=== PATIENT | female | born 1950 | race Caucasian/White ===

== ENCOUNTER 2018-11-23 15:14 | Emergency (ER) | payer MEDICARE, MEDICAID ==
--- NOTE | 2018-11-23 15:55 | ED.PDOC ---
History of Present Illness - General Chief Complaint: Neuro Symptoms/Deficits Stated Complaint: altered mental status Time Seen by Provider: 11/23/18 15:15 Source: family, EMS Exam Limitations: clinical condition - History of Present Illness Initial Comments: patient is brought in via EMS from [facility]. They report altered LOC but cannot tell us much more than that. They do state that she was talking and alert several days ago and that she does have a history of being a CO2 retainer with primary diagnosis of COPD. Her family was called and they stated that the patient had a COPD exacerbation that required hospitalization. During hospitalization she did not have her BiPAP on at nighttime for several nights and suffered an acute myocardial infarction. At that time she had cardiac arrest and was intubated. They were initially able to get her off of the ventilator but then she began having difficulties again during rehabilitation and tracheostomy tube had to be replaced. Patient was in rehabilitation and was talking and eating and feeding herself and she was sent to [facility] on November 14. Family states that that was her baseline for the first 4 days of care home admission. However, after they started seeing worsening and 2 days ago she became lethargic and stopped eating. They state her past medical history is significant for bipolar disorder, hypertension, diabetes mellitus type 2, COPD from distant smoking (she quit 20 years ago). Patient has a history of obstructive sleep apnea as well as cardiomyopathy. Timing/Duration: getting worse Severity: severe Improving Factors: nothing Worsening Factors: nothing Associated Symptoms: denies symptoms - care home unable to report Allergies/Adverse Reactions: Allergies Cephalexin [From Keflex] Allergy (Verified 11/23/18 15:44) Lidocaine Allergy (Verified 11/23/18 15:44) NSAIDs Allergy (Verified 11/23/18 15:44) Ondansetron [From Zofran] Allergy (Verified 11/23/18 15:44) Home Medications: Ambulatory Orders Sulfa/Trimeth 800/160 (Ds) Tab [Bactrim DS] 1 tablet PO BID #20 tab 11/23/18 Review of Systems - Review of Systems Review of Systems: 11/23/18 15:56 unable to evaluate secondary to altered LOC and NH unable to report Past Medical History (General) - Patient Medical History Hx Asthma: Yes Hx of COPD: Yes Hx Cardiac Disorders: Yes Hx Hypertension: Yes Hx Diabetes: Yes Hx Gastroesophageal Reflux: Yes - Social History Hx Tobacco Use: Yes - Activities of Daily Living Custodial/Assisted Living (if applicable):: [facility] - Triage Comment ED Triage Comment: EMS states patient fell on Saturday and today is lethargic. Family Medical History - Family History Mother Family History: Unknown Living Status: Unknown Physical Exam - Physical Exam General Appearance: Ill Appearing, Obese, Other - opens eyes to touch but not responding Eye Exam: bilateral normal - pinpoint pupils but responsive Ears, Nose, Throat: normal pharynx - dry mucous membranes Neck: non-tender, full range of motion, supple, other - treacheostomy tube in place Respiratory: chest non-tender, lungs clear, normal breath sounds, no respiratory distress Cardiovascular/Chest: normal peripheral pulses, regular rate, rhythm, no edema, no gallop, no JVD, no murmur Peripheral Pulses: radial,right: 2+, radial,left: 2+ Gastrointestinal/Abdominal: normal bowel sounds, non tender, soft Extremity: normal inspection Skin Exam: normal color, warm/dry Lymphatic: no adenopathy Progress - Progress Progress: 11/23/18 20:21 patient is now awake and talking to us. Only treatment thus far has been adjustment of her vent settings. Possible early UTI. Will treat with bactrim as she has allergy to cephalexin. Will call family and send her back to care home. - Results/Orders Results/Orders: Patient Name: DEWAYNE PROCTOR Gender: Female Date of : 1950 Referring Physician: MELANIE RAMOS Organization: [facility] Accession Number: [id number] Requested Date: November 23, 2018 15:27 Report Status: Final Requested Procedure: 1 Procedure Description: Chest,1 View Modality: CR Findings Reporting MD: Jose Wang Fellow MD: Not available Dictation Time: Pantomimist: Not available Legislative Correspondent Date: EXAM DESCRIPTION: Chest,1 View CLINICAL HISTORY: altered LOC COMPARISON: None available FINDINGS: A tracheostomy tube is present without apparent complication. The cardiac silhouette is at the upper limits of normal size for AP technique. Mediastinal contours are otherwise unremarkable. There is no airspace consolidation or pleural effusion. The bronchovascular markings are within normal limits, and the lungs are not hyperinflated. There is no pneumothorax or acute fracture. IMPRESSION: Borderline cardiomegaly, otherwise unremarkable exam. Departure - Departure Clinical Impression: Altered behavior UTI (urinary tract infection) Qualifiers: Urinary tract infection type: acute cystitis Hematuria presence: without hematuria Qualified Code(s): N30.00 - Acute cystitis without hematuria Disposition: Discharge to SNF Departure Forms: ED Discharge - Pt. Copy, Patient Portal Self Enrollment Referrals: ARNAUD FNA [Primary Care Provider] - 1-2 Weeks Prescriptions: Sulfa/Trimeth 800/160 (Ds) Tab [Bactrim DS] 1 tablet PO BID #20 tab Home Medications: Ambulatory Orders Sulfa/Trimeth 800/160 (Ds) Tab [Bactrim DS] 1 tablet PO BID #20 tab 11/23/18 Additional Instructions: return to ER for shortness of breath, altered LOC, intractable emesis.
--- NOTE | 2018-11-23 15:59 | RAD ---
EXAM DESCRIPTION: Chest,1 View CLINICAL HISTORY: altered LOC COMPARISON: None available FINDINGS: A tracheostomy tube is present without apparent complication. The cardiac silhouette is at the upper limits of normal size for AP technique. Mediastinal contours are otherwise unremarkable. There is no airspace consolidation or pleural effusion. The bronchovascular markings are within normal limits, and the lungs are not hyperinflated. There is no pneumothorax or acute fracture. IMPRESSION: Borderline cardiomegaly, otherwise unremarkable exam. Electronically signed by: Jose Wang MD 11/23/2018 3:57 PM CDT
--- NOTE | 2018-11-23 17:15 | CT ---
EXAM DESCRIPTION: CT Head CLINICAL HISTORY: 68 years Female altered LOC COMPARISON: None TECHNIQUE: Noncontrast axial scans of the brain were obtained. Sagittal and coronal reformatted images were performed. There are a few scanning artifacts on various slices due to slight patient motion. This exam was performed according to our departmental dose-optimization program, which includes automated exposure control, adjustment of the mA and/or kV according to patient size and/or use of iterative reconstruction technique. FINDINGS: There is no evidence of acute intracranial hemorrhage, extracerebral fluid collection, hydrocephalus, midline shift, obvious mass effect, or major territorial infarction. Equivocal for tiny old lacunar infarct on the left. There is slight positional asymmetry. Cortical sulci are unremarkable. Cortez-white distinction is preserved. There is slight vascular calcification at the base of the brain. The bony calvarium appears intact. There is minimal mucosal thickening in both maxillary antra. Otherwise, the paranasal sinuses and mastoid air cells appear clear except for possible minimal left mastoid air cell opacification. IMPRESSION: No evidence of acute intracranial hemorrhage. Minor findings as described above. Electronically signed by: Mo Wise MD 11/23/2018 5:13 PM CDT
[2018-11-23] MEDS ORDERED: SULFA/TRIMETH SUSP 200/40 60 ML BTTL PO ONE (20:20)
[2018-11-23 20:56] VITALS: BP 127/70; TEMP 100.6; O2SAT 93
== END 2018-11-23 21:02 ==
LOC: ER 15:14
DX: N30.00 Acute cystitis without hematuria (principal); R41.82 Altered mental status, unspecified; I25.2 Old myocardial infarction; J44.9 Chronic obstructive pulmonary disease, unspecified; I51.9 Heart disease, unspecified; I10 Essential (primary) hypertension; E11.9 Type 2 diabetes mellitus without complications; K21.9 Gastro-esophageal reflux disease without esophagitis; F31.9 Bipolar disorder, unspecified; G47.33 Obstructive sleep apnea (adult) (pediatric); Z93.0 Tracheostomy status; Z88.8 Allergy status to other drugs, medicaments and biological substances; Z88.6 Allergy status to analgesic agent; Z88.1 Allergy status to other antibiotic agents; Z87.891 Personal history of nicotine dependence

== ENCOUNTER 2018-11-25 18:19 | Emergency (ER) | payer MEDICARE, MEDICAID ==
[2018-11-25] MEDS ORDERED: IPRATROPIUM/ALBUTEROL 3 ML VIAL NEB ONE (19:24)
--- NOTE | 2018-11-25 19:36 | RAD ---
EXAM: XR Chest, 1 View CLINICAL HISTORY: 68 years old and is Female; altered mental status TECHNIQUE: Frontal view of the chest. COMPARISON: No relevant prior studies available. FINDINGS: Limitations: None. Lungs: Unremarkable. No consolidation. Pleural space: Unremarkable. No pneumothorax. Heart: Stable prominent cardiac shadow. Mediastinum: Unremarkable. Bones/joints: Unremarkable. Tubes, lines and devices: Tracheostomy unchanged. IMPRESSION: No acute findings. Electronically signed by: Hyun Rm MD 11/25/2018 7:34 PM CDT
[2018-11-25] MEDS: IPRATROPIUM/ALBUTEROL 3 ML VIAL NEB ONE (19:50)
[2018-11-25] MEDS: ACETYLCYSTEIN 20 % 6,000 MG/30 ML VIAL NEB SCH (20:02)
--- NOTE | 2018-11-25 22:08 | ED.PDOC ---
History of Present Illness - General Chief Complaint: Neuro Symptoms/Deficits Stated Complaint: ALTERED MENTAL STATUS Time Seen by Provider: 11/25/18 18:33 Source: patient, EMS notes reviewed Exam Limitations: clinical condition - History of Present Illness Initial Comments: The patient is a 68-year-old female sitting up secondary to another episode of mild altered mental status. The patient was dizzy and a little bit confused when she got up at the longterm. She fell and slid to the ground. She does not really appear to have herself with the fall. She is cooperative. She is drowsy. She reports that she did receive some of her evening medications. She does have several sedating-type medications. The patient is on a vent. It does appear that she was on a trach collar earlier in the day. She does not have any further complaints at this time. No evidence of syncope.the patient does appear to move all extremities well. She moves her legs well when we need to do a [place] catheter. She helps reposition herself in bed. She nods yes and no appropriately to almost all questions.initially upon arrival her end-tidal CO2 were elevated in the 60s and 70s, and peak inspiratory pressures were elevated in the 40s and 50s. After 2 DuoNeb treatments and Mucomyst treatment however both of these numbers did start to improve significantly. The patient is resting more comfortably at this point. Timing/Duration: unsure Severity: mild Improving Factors: nothing Worsening Factors: nothing Associated Symptoms: denies symptoms Allergies/Adverse Reactions: Allergies Cephalexin [From Keflex] Allergy (Verified 11/23/18 15:44) Lidocaine Allergy (Verified 11/23/18 15:44) NSAIDs Allergy (Verified 11/23/18 15:44) Ondansetron [From Zofran] Allergy (Verified 11/23/18 15:44) Home Medications: Ambulatory Orders Sulfa/Trimeth 800/160 (Ds) Tab [Bactrim DS] 1 tablet PO BID #20 tab 11/23/18 Acetylcystein 20 % [Mucomyst] 11/25/18 Albuterol 2 mg/5 ml [Proventil] 11/25/18 Atorvastatin Calcium 40 mg PO 11/25/18 Carbamide Peroxide Otic [Debrox Otic] 15 ml BOTH_EARS 11/25/18 Cyanocobalamin [B12] 1,000 mcg PO 11/25/18 Diamox Sequels 11/25/18 Docusate Sodium 100 mg PO 11/25/18 Famotidine 20 mg PO 11/25/18 Fluticasone Propionate (Nasal) [Fluticasone Propionate] 50 mcg NA 11/25/18 Furosemide 40 mg PO 11/25/18 Hydrocodone-Acetaminophen [Hydrocodone Bitartrate/AC 10-325 mg] 1 tab PO 11/25/18 Insulin Aspart [Novolog] 11/25/18 Ipratropium-Albuterol [Ipratropium [place]/Albut] 1 izaiah IN 11/25/18 LORazepam [Ativan] 1 mg PO 11/25/18 Lamotrigine 25 mg PO 11/25/18 Lisinopril 5 mg PO 11/25/18 Loratadine [Claritin] 10 mg PO 11/25/18 Lubiprostone [Amitiza] 24 mcg PO 11/25/18 Metformin HCl [Fortamet] 500 mg PO 11/25/18 Nystatin (Topical) [Nystatin] 11/25/18 Polyethylene Glycol 3350 [Miralax] 17 gm PO DAILY 11/25/18 Potassium Acetate (Bulk) [Potassium Acetate] 11/25/18 predniSONE 20 mg PO 11/25/18 Review of Systems - Review of Systems Constitutional: States: malaise, weakness EENTM: States: no symptoms reported Respiratory: States: short of breath Cardiology: States: no symptoms reported Gastrointestinal/Abdominal: States: no symptoms reported Genitourinary: States: no symptoms reported Musculoskeletal: States: no symptoms reported Skin: States: no symptoms reported Neurological: States: no symptoms reported Endocrine: States: no symptoms reported All other Systems: No Change from Baseline Past Medical History (General) - Patient Medical History Hx Asthma: Yes Hx of COPD: Yes Hx Cardiac Disorders: Yes Hx Congestive Heart Failure: No Hx Hypertension: Yes Hx Diabetes: Yes Hx Gastroesophageal Reflux: Yes - Social History Hx Tobacco Use: Yes Family Medical History - Family History Mother Family History: Unknown Living Status: Unknown Physical Exam - Physical Exam General Appearance: Alert, No apparent distress Eye Exam: bilateral normal Ears, Nose, Throat: hearing grossly normal, normal pharynx Neck: supple, other - racheostomy is in place Respiratory: decreased breath sounds, other - ventilated Cardiovascular/Chest: normal peripheral pulses, other - regular rate Peripheral Pulses: radial,right: 2+, radial,left: 2+ Gastrointestinal/Abdominal: non tender - obese, soft Rectal Exam: deferred Back Exam: no vertebral tenderness, other - the patient moves her extremities well. She does not have any pain over the spinous processes. She has some mild right posterior upper buttock discomfort where she had fallen. She moves the hip well. No evidence of any pelvic stability. No evidence of overt bruising. No crepitus. 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, oriented x 3, other - the patient is drowsy but arousable to voice Skin Exam: normal color Comments: Vital Signs - 24 hr 11/25/18 11/25/18 11/25/18 18:20 18:29 19:31 Temperature 98.3 F Pulse Rate [ 74 80 brachial] Respiratory 24 20 24 Rate Respiratory 24 Rate [Volume Control Data] Blood Pressure 161/81 119/52 [right brachial ] O2 Sat by Pulse 99 97 Oximetry 11/25/18 11/25/18 11/25/18 19:55 20:00 20:28 Temperature Pulse Rate [ 88 94 H brachial] Respiratory 24 22 Rate Respiratory 22 Rate [Volume Control Data] Blood Pressure 114/62 130/99 [right brachial ] O2 Sat by Pulse 96 92 L Oximetry 11/25/18 11/25/18 11/25/18 21:00 21:28 22:00 Temperature Pulse Rate [ 94 H 82 83 brachial] Respiratory 26 H 22 20 Rate Respiratory Rate [Volume Control Data] Blood Pressure 131/69 141/61 110/80 [right brachial ] O2 Sat by Pulse 95 94 L 94 L Oximetry 11/25/18 22:09 Temperature Pulse Rate [ brachial] Respiratory Rate Respiratory 22 Rate [Volume Control Data] Blood Pressure [right brachial ] O2 Sat by Pulse Oximetry Progress - Progress Progress: 11/25/18 22:14 the patient is a 68-year-old female presenting secondary to increased drowsiness. This appears to most likely be due to an acute respiratory acidosis, from hypoventilation with reactive airway. Initial blood gases are indicative of that. The patient had been on a trach collar earlier in the evening which likely contributed. She may not quite be ready for a trach collar at this point. Ventilator settings that seemed to improve the patient's respiratory and acid base status are as follows here: SIMV at a rate of 22 breaths per minute, volume 450 cc, 35% FiO2, PEEP of 7, pressure support of 12. Additionally the patient's peak inspiratory pressures were significantly elevated initially and did appear to improve significantly with DuoNeb treatments. I would recommend increasing her DuoNeb treatments to 4 times daily. A reduction in her peak inspiratory pressures did coincide with a drop in her end-tidal CO2. The patient will be discharged back to her long-term care facility. I would recommend another ABG tomorrow for further ventilator adjustments. PH is back to normal though she does still very mildly retain some CO2. consideration should also be given to significantly reducing opiate and benzodiazepine doses while on the trach collar. - Results/Orders Results/Orders: 11/25/18 19:00 EKG STAT EKG shows normal sinus rhythm at 74 bpm. Right axis deviation. Normal R-wave progression. No ST segment or T-wave changes definitive for ischemia. Normal QT interval. chest x-ray shows no acute pathology. Laboratory Results - last 24 hr 11/25/18 11/25/18 11/25/18 19:03 19:15 19:15 WBC 7.4 RBC 3.59 L Hgb 10.0 L Hct 32.2 L MCV 89.9 MCH 27.8 MCHC 30.9 L RDW 16.8 H Plt Count 281 MPV 7.3 L Absolute Neuts (auto) 6.10 Absolute Lymphs (auto) 0.50 L Absolute Monos (auto) 0.50 Absolute Eos (auto) 0.20 Absolute Basos (auto) 0.00 Neutrophils % 82.8 H Lymphocytes % 6.7 L Monocytes % 7.3 Eosinophils % 3.1 Basophils % 0.1 pCO2 65 H pO2 80 L HCO3 27.5 ABG pH 7.250 L* ABG O2 Saturation 96.4 ABG Base Excess 0.0 ABG Deoxyhemoglobin 3.6 Oxyhemoglobin % 94.8 Carboxyhemoglobin % -0.2 L Methemoglobin % Sat 1.9 H Calc Total Hemoglobin 9.7 L Sodium 137 Potassium 3.7 Chloride 99 L Carbon Dioxide 27 Anion Gap 14.7 BUN 8 Creatinine 0.65 BUN/Creatinine Ratio 12.3 Random Glucose 129 H Serum Osmolality 273.8 L Calcium 8.8 Total Bilirubin 0.4 AST 18 ALT 22 Alkaline Phosphatase 116 Creatine Kinase CK-MB (CK-2) CK-MB (CK-2) % Troponin I B-Natriuretic Peptide Serum Total Protein 6.8 Albumin 2.9 L Globulin 3.9 H Albumin/Globulin Ratio 0.7 L Urine Color Urine Appearance Urine pH Ur Specific [place] Urine Protein Urine Glucose (UA) Urine Ketones Urine Blood Urine Nitrite Urine Bilirubin Urine Urobilinogen Ur Leukocyte Esterase Urine RBC Urine WBC Ur Epithelial Cells Urine Bacteria 11/25/18 11/25/18 11/25/18 19:15 19:15 20:30 WBC RBC Hgb Hct MCV MCH MCHC RDW Plt Count MPV Absolute Neuts (auto) Absolute Lymphs (auto) Absolute Monos (auto) Absolute Eos (auto) Absolute Basos (auto) Neutrophils % Lymphocytes % Monocytes % Eosinophils % Basophils % pCO2 pO2 HCO3 ABG pH ABG O2 Saturation ABG Base Excess ABG Deoxyhemoglobin Oxyhemoglobin % Carboxyhemoglobin % Methemoglobin % Sat Calc Total Hemoglobin Sodium Potassium Chloride Carbon Dioxide Anion Gap BUN Creatinine BUN/Creatinine Ratio Random Glucose Serum Osmolality Calcium Total Bilirubin AST ALT Alkaline Phosphatase Creatine Kinase 52 CK-MB (CK-2) 4.3 CK-MB (CK-2) % Not Reportable Troponin I 0.02 B-Natriuretic Peptide 64.3 Serum Total Protein Albumin Globulin Albumin/Globulin Ratio Urine Color Yellow Urine Appearance Clear Urine pH 7.0 Ur Specific [place] 1.020 Urine Protein Negative Urine Glucose (UA) Negative Urine Ketones Negative Urine Blood Small H Urine Nitrite Negative Urine Bilirubin Negative Urine Urobilinogen 0.2 Ur Leukocyte Esterase Negative Urine RBC 1-3 Urine WBC 4 H Ur Epithelial Cells 1-3 Urine Bacteria 4+ H 11/25/18 21:47 WBC RBC Hgb Hct MCV MCH MCHC RDW Plt Count MPV Absolute Neuts (auto) Absolute Lymphs (auto) Absolute Monos (auto) Absolute Eos (auto) Absolute Basos (auto) Neutrophils % Lymphocytes % Monocytes % Eosinophils % Basophils % pCO2 51 H pO2 77 L HCO3 26.8 ABG pH 7.340 L ABG O2 Saturation 97.0 ABG Base Excess 1.2 ABG Deoxyhemoglobin 3.0 Oxyhemoglobin % 95.1 Carboxyhemoglobin % -0.6 L Methemoglobin % Sat 2.5 H Calc Total Hemoglobin 9.0 L Sodium Potassium Chloride Carbon Dioxide Anion Gap BUN Creatinine BUN/Creatinine Ratio Random Glucose Serum Osmolality Calcium Total Bilirubin AST ALT Alkaline Phosphatase Creatine Kinase CK-MB (CK-2) CK-MB (CK-2) % Troponin I B-Natriuretic Peptide Serum Total Protein Albumin Globulin Albumin/Globulin Ratio Urine Color Urine Appearance Urine pH Ur Specific [place] Urine Protein Urine Glucose (UA) Urine Ketones Urine Blood Urine Nitrite Urine Bilirubin Urine Urobilinogen Ur Leukocyte Esterase Urine RBC Urine WBC Ur Epithelial Cells Urine Bacteria Departure - Departure Clinical Impression: Acute respiratory acidosis, Hypercapnia Reactive airway disease Qualifiers: Asthma severity: moderate Asthma persistence: persistent Asthma complication type: with acute exacerbation Qualified Code(s): J45.41 - Moderate persistent asthma with (acute) exacerbation Disposition: Discharge to SNF Condition: Fair Departure Forms: ED Discharge - Pt. Copy, Patient Portal Self Enrollment Diet: regular diet Activity: increase activity as tolerated Referrals: ARNAUD FAN [Primary Care Provider] - 1-2 Days Home Medications: Ambulatory Orders Sulfa/Trimeth 800/160 (Ds) Tab [Bactrim DS] 1 tablet PO BID #20 tab 11/23/18 Acetylcystein 20 % [Mucomyst] 11/25/18 Albuterol 2 mg/5 ml [Proventil] 11/25/18 Atorvastatin Calcium 40 mg PO 11/25/18 Carbamide Peroxide Otic [Debrox Otic] 15 ml BOTH_EARS 11/25/18 Cyanocobalamin [B12] 1,000 mcg PO 11/25/18 Diamox Sequels 11/25/18 Docusate Sodium 100 mg PO 11/25/18 Famotidine 20 mg PO 11/25/18 Fluticasone Propionate (Nasal) [Fluticasone Propionate] 50 mcg NA 11/25/18 Furosemide 40 mg PO 11/25/18 Hydrocodone-Acetaminophen [Hydrocodone Bitartrate/AC 10-325 mg] 1 tab PO 11/25/18 Insulin Aspart [Novolog] 11/25/18 Ipratropium-Albuterol [Ipratropium [place]/Albut] 1 izaiah IN 11/25/18 LORazepam [Ativan] 1 mg PO 11/25/18 Lamotrigine 25 mg PO 11/25/18 Lisinopril 5 mg PO 11/25/18 Loratadine [Claritin] 10 mg PO 11/25/18 Lubiprostone [Amitiza] 24 mcg PO 11/25/18 Metformin HCl [Fortamet] 500 mg PO 11/25/18 Nystatin (Topical) [Nystatin] 11/25/18 Polyethylene Glycol 3350 [Miralax] 17 gm PO DAILY 11/25/18 Potassium Acetate (Bulk) [Potassium Acetate] 11/25/18 predniSONE 20 mg PO 11/25/18 Additional Instructions: the patient is a 68-year-old female presenting secondary to increased drowsiness. This appears to most likely be due to an acute respiratory acidosis, from hypoventilation with reactive airway. Initial blood gases are indicative of that. The patient had been on a trach collar earlier in the evening which likely contributed. She may not quite be ready for a trach collar at this point. Ventilator settings that seemed to improve the patient's respiratory and acid base status are as follows here: SIMV at a rate of 22 breaths per minute, volume 450 cc, 35% FiO2, PEEP of 7, pressure support of 12. Additionally the patient's peak inspiratory pressures were significantly elevated initially and did appear to improve significantly with DuoNeb treatments. I would recommend increasing her DuoNeb treatments to 4 times daily. A reduction in her peak inspiratory pressures did coincide with a drop in her end-tidal CO2. The patient will be discharged back to her long-term care facility. I would recommend another ABG tomorrow for further ventilator adjustments. PH is back to normal though she does still very mildly retain some CO2. consideration should also be given to significantly reducing opiate and benzodiazepine doses while on the trach collar.
[2018-11-25 23:01] VITALS: BP 123/62
[2018-11-25 23:41] VITALS: TEMP 98.1; O2SAT 96
== END 2018-11-25 23:41 ==
LOC: ER 18:19
DX: J45.41 Moderate persistent asthma with (acute) exacerbation (principal); R06.89 Other abnormalities of breathing; E87.2 Acidosis; M54.5 Low back pain; R40.0 Somnolence; J44.9 Chronic obstructive pulmonary disease, unspecified; I51.9 Heart disease, unspecified; I10 Essential (primary) hypertension; E11.9 Type 2 diabetes mellitus without complications; K21.9 Gastro-esophageal reflux disease without esophagitis; Z93.0 Tracheostomy status; Z79.899 Other long term (current) drug therapy; Z79.4 Long term (current) use of insulin; Z88.8 Allergy status to other drugs, medicaments and biological substances; Z88.1 Allergy status to other antibiotic agents; Z88.6 Allergy status to analgesic agent
CPT/HCPCS: 36600; 71045; 80053; 81001; 82550; 82553; 82803; 82805; 83880; 84484; 85025; 93005; 94002; 94770; J7620

== ENCOUNTER 2018-11-29 14:12 | Emergency (ER) | payer MEDICARE, MEDICAID ==
--- NOTE | 2018-11-29 15:01 | ED.PDOC ---
History of Present Illness - General Chief Complaint: Respiratory Problem Stated Complaint: elevated CO2,trouble breathing Time Seen by Provider: 11/29/18 14:41 Source: family - daughter Exam Limitations: clinical condition - tracheostomy - History of Present Illness Initial Comments: Keyla Anglin 68 y/o female with resident at [facility] on chronic ventilatory support for chronic respiratory failure COPD,CHF,DM2,ANJALI brought by EMS to [facility] after she was found to have low oxygen saturation at the facility but paper sent from [facility] -98%.Daughter stated that they tried to raise her Oxygen on her ventilator but her mom got worse.Seen here at [facility] for same problem 3 days ago.On her arrival patient follows commands,opens eyes.Daughter stated she had been sleeping a lot lately and difficulty moving around for the last several weeks noted some deterioration of her function.Also still taking antibiotics for UTI. Timing/Duration: this afternoon Severity: moderate Possible Cause: occasional episodes Improving Factors: nothing Worsening Factors: nothing Associated Symptoms: other - see hpi Allergies/Adverse Reactions: Allergies Cephalexin [From Keflex] Allergy (Verified 11/23/18 15:44) Lidocaine Allergy (Verified 11/23/18 15:44) NSAIDs Allergy (Verified 11/23/18 15:44) Ondansetron [From Zofran] Allergy (Verified 11/23/18 15:44) Home Medications: Ambulatory Orders Albuterol 2 mg/5 ml [Proventil] 2.5 mg INH Q2H PRN 11/25/18 Atorvastatin Calcium 40 mg PO BEDTIME 11/25/18 Carbamide Peroxide Otic [Debrox Otic] 15 ml BOTH_EARS BEDTIME 11/25/18 Cyanocobalamin [B12] 1,000 mcg PO DAILY 11/25/18 Docusate Sodium 100 mg PO BID 11/25/18 Famotidine 20 mg PO BID 11/25/18 Fluticasone Propionate (Nasal) [Fluticasone Propionate] 50 mcg NA DAILY 11/25/18 Furosemide 40 mg PO DAILY 11/25/18 Hydrocodone-Acetaminophen [Hydrocodone Bitartrate/AC 10-325 mg] 1 tab PO BID 11/25/18 Insulin Aspart [Novolog] 0 units SUBCU .SLIDINGSCALE 11/25/18 Ipratropium-Albuterol [Ipratropium [place]/Albut] 3 ml IN Q6H PRN 11/25/18 LORazepam [Ativan] 1 mg PO Q8H PRN 11/25/18 Lamotrigine 100 mg PO BEDTIME 11/25/18 Lisinopril 5 mg PO DAILY 11/25/18 Loratadine [Claritin] 10 mg PO DAILY 11/25/18 Lubiprostone [Amitiza] 24 mcg PO BID 11/25/18 Metformin HCl [Fortamet] 500 mg PO BID 11/25/18 Polyethylene Glycol 3350 [Miralax] 17 gm PO DAILY 11/25/18 Acetazolamide 500 mg PO BID 11/29/18 Cefuroxime Axetil [Ceftin] 500 mg PO Q12H 10 Days #20 tablet 11/29/18 Cholecalciferol [Vitamin D3] 50,000 unit PO TH 11/29/18 Guaifenesin [Guaifenesin ER] 600 mg PO BID 11/29/18 Insulin Lispro (Human) [Humalog] 300 unit SC .SLDINGSCALE 11/29/18 Lactulose (Encephalopathy) [Lactulose] 30 ml PO TID 11/29/18 Lamotrigine 50 mg PO DAILY 11/29/18 Phenazopyridine HCl 100 mg PO DAILY 11/29/18 Potassium Chloride [K-Tab] 20 meq PO DAILY 11/29/18 Sertraline HCl 100 mg PO DAILY 11/29/18 Tamsulosin [Flomax] 0.4 mg PO BEDTIME 11/29/18 Review of Systems - Review of Systems Respiratory: States: see HPI Unable to Obtain Due To: condition - tracheostomy Past Medical History (General) - Patient Medical History Hx Asthma: Yes Hx of COPD: Yes Hx Cardiac Disorders: Yes Hx Congestive Heart Failure: No Hx Hypertension: Yes Hx Diabetes: Yes Hx Gastroesophageal Reflux: Yes - Vaccination History Hx Influenza Vaccination: Yes Hx Pneumococcal Vaccination: Yes - Social History Hx Tobacco Use: Yes - Activities of Daily Living Half-Way/Assisted Living (if applicable):: [facility] Family Medical History - Family History Mother Family History: Unknown Living Status: Unknown Progress - Progress Progress: 11/29/18 16:40 Vital Signs - 8 hr 11/29/18 11/29/18 11/29/18 14:22 14:51 15:12 Temperature 97.9 F Pulse Rate [ 96 H 92 H Right Ulnar] Respiratory 18 18 18 Rate Respiratory Rate [Volume Control Data] Blood Pressure 196/111 146/80 [Right Arm] O2 Sat by Pulse 99 93 L Oximetry 11/29/18 11/29/18 11/29/18 15:53 15:59 16:00 Temperature 98 F Pulse Rate [ 96 H Right Ulnar] Respiratory 20 18 18 Rate Respiratory 20 18 Rate [Volume Control Data] Blood Pressure 141/78 [Right Arm] O2 Sat by Pulse 99 92 L Oximetry 11/29/18 16:41 Her tracheostomy care done-suctioned and cleaned presently with good saturation 11/29/18 18:00 Had developed skin rash with Cephalexin in the past - Results/Orders Results/Orders: Laboratory Tests 11/29/18 11/29/18 15:13 15:48 WBC 13.3 H RBC 3.73 L Hgb 10.2 L Hct 33.2 L MCV 89.0 MCH 27.2 MCHC 30.6 L RDW 16.9 H Plt Count 360 MPV 7.1 L Absolute Neuts (auto) 12.10 H Absolute Lymphs (auto) 0.50 L Absolute Monos (auto) 0.50 Absolute Eos (auto) 0.10 Absolute Basos (auto) 0.00 Neutrophils % 91.2 H Lymphocytes % 3.6 L Monocytes % 4.0 Eosinophils % 1.0 Basophils % 0.2 PT 9.7 INR 0.97 PTT (SP) 24.1 pCO2 42 pO2 125 H* HCO3 22.0 ABG pH 7.340 L ABG O2 Saturation 99.4 H ABG Base Excess -3.1 ABG Deoxyhemoglobin 0.6 Oxyhemoglobin % 97.7 Carboxyhemoglobin % -0.4 L Methemoglobin % Sat 2.1 H Calc Total Hemoglobin 10.0 L Sodium 136 Potassium 3.6 Chloride 102 Carbon Dioxide 25 Anion Gap 12.6 BUN 9 Creatinine 1.06 BUN/Creatinine Ratio 8.5 L Random Glucose 206 H Serum Osmolality 276.6 Calcium 9.1 Magnesium 2.0 Total Bilirubin 0.3 Direct Bilirubin < 0.1 Indirect Bilirubin 0.2 AST 21 ALT 17 Alkaline Phosphatase 120 Creatine Kinase 21 L CK-MB (CK-2) 1.8 CK-MB (CK-2) % Not Reportable Troponin I < 0.02 Serum Total Protein 7.6 Albumin 3.0 L She had her urine c/s available done outpatient and showing organism sensitive to Ceftin;discuss with daughter if there was any allergies in the past but stated took ceftin before. - EKG/XRAY/CT XRAY: chest - no acute abnormalities noted Departure - Departure Clinical Impression: Ventilator dependent Acute and chronic respiratory failure Qualifiers: Respiratory failure complication: unspecified whether with hypoxia or hypercapnia Qualified Code(s): J96.20 - Acute and chronic respiratory failure, unspecified whether with hypoxia or hypercapnia Urinary tract infection Qualifiers: Urinary tract infection type: site unspecified Hematuria presence: without hematuria Qualified Code(s): N39.0 - Urinary tract infection, site not specified Time of Disposition: 18:06 Disposition: Discharge to SNF Condition: Poor Departure Forms: ED Discharge - Pt. Copy, Patient Portal Self Enrollment Referrals: ARNAUD FAN [Primary Care Provider] - 1-2 Weeks Prescriptions: Cefuroxime Axetil [Ceftin] 500 mg PO Q12H 10 Days #20 tablet Home Medications: Ambulatory Orders Albuterol 2 mg/5 ml [Proventil] 2.5 mg INH Q2H PRN 11/25/18 Atorvastatin Calcium 40 mg PO BEDTIME 11/25/18 Carbamide Peroxide Otic [Debrox Otic] 15 ml BOTH_EARS BEDTIME 11/25/18 Cyanocobalamin [B12] 1,000 mcg PO DAILY 11/25/18 Docusate Sodium 100 mg PO BID 11/25/18 Famotidine 20 mg PO BID 11/25/18 Fluticasone Propionate (Nasal) [Fluticasone Propionate] 50 mcg NA DAILY 11/25/18 Furosemide 40 mg PO DAILY 11/25/18 Hydrocodone-Acetaminophen [Hydrocodone Bitartrate/AC 10-325 mg] 1 tab PO BID 11/25/18 Insulin Aspart [Novolog] 0 units SUBCU .SLIDINGSCALE 11/25/18 Ipratropium-Albuterol [Ipratropium [place]/Albut] 3 ml IN Q6H PRN 11/25/18 LORazepam [Ativan] 1 mg PO Q8H PRN 11/25/18 Lamotrigine 100 mg PO BEDTIME 11/25/18 Lisinopril 5 mg PO DAILY 11/25/18 Loratadine [Claritin] 10 mg PO DAILY 11/25/18 Lubiprostone [Amitiza] 24 mcg PO BID 11/25/18 Metformin HCl [Fortamet] 500 mg PO BID 11/25/18 Polyethylene Glycol 3350 [Miralax] 17 gm PO DAILY 11/25/18 Acetazolamide 500 mg PO BID 11/29/18 Cefuroxime Axetil [Ceftin] 500 mg PO Q12H 10 Days #20 tablet 11/29/18 Cholecalciferol [Vitamin D3] 50,000 unit PO TH 11/29/18 Guaifenesin [Guaifenesin ER] 600 mg PO BID 11/29/18 Insulin Lispro (Human) [Humalog] 300 unit SC .SLDINGSCALE 11/29/18 Lactulose (Encephalopathy) [Lactulose] 30 ml PO TID 11/29/18 Lamotrigine 50 mg PO DAILY 11/29/18 Phenazopyridine HCl 100 mg PO DAILY 11/29/18 Potassium Chloride [K-Tab] 20 meq PO DAILY 11/29/18 Sertraline HCl 100 mg PO DAILY 11/29/18 Tamsulosin [Flomax] 0.4 mg PO BEDTIME 11/29/18 Additional Instructions: For follow up with primary Md Dr. Damon in am for recheck;continue with all home medications EXCEPT BACTRIM-need to discontinue;
[2018-11-29] MEDS ORDERED: hydrALAZINE HCl 20 MG/ML VIAL IV ONE (15:03)
--- NOTE | 2018-11-29 15:25 | RAD ---
EXAM: XR Chest, 1 View CLINICAL HISTORY: The patient is 68 years old and is Female; low sao2 TECHNIQUE: Frontal view of the chest. COMPARISON: Chest radiograph from 11/25/2018 FINDINGS: LUNGS: Unremarkable. No consolidation. PLEURAL SPACE: Unremarkable. No pneumothorax. HEART: No significant enlargement of the cardiac silhouette. MEDIASTINUM: Unremarkable. BONES/JOINTS: The bones are unchanged. TUBES, LINES AND DEVICES: Tracheostomy tube in satisfactory position. IMPRESSION: No acute findings visualized in the chest. Electronically signed by: Karuna Conley MD 11/29/2018 3:22 PM CDT
[2018-11-29 16:14] VITALS: TEMP 98
[2018-11-29] MEDS ORDERED: levoFLOXacin 500MG IV 500 MG in PREMIX BAG 1 BAG IVPB ONE (17:21)
[2018-11-29] MEDS ORDERED: PHENAZOPYRIDINE HCL 200 MG TAB PO ONE (17:36)
[2018-11-29] MEDS ORDERED: CEFUROXIME AXETIL TAB 250 MG TAB PO ONE (17:50)
[2018-11-29 18:52] VITALS: BP 160/88; O2SAT 95
== END 2018-11-29 18:51 ==
LOC: ER 14:12
DX: J96.20 Acute and chronic respiratory failure, unspecified whether with hypoxia or hypercapnia (principal); N39.0 Urinary tract infection, site not specified; J44.9 Chronic obstructive pulmonary disease, unspecified; I11.0 Hypertensive heart disease with heart failure; E11.9 Type 2 diabetes mellitus without complications; I50.9 Heart failure, unspecified; K21.9 Gastro-esophageal reflux disease without esophagitis; G47.33 Obstructive sleep apnea (adult) (pediatric); Z99.11 Dependence on respirator [ventilator] status; Z88.1 Allergy status to other antibiotic agents; Z88.6 Allergy status to analgesic agent; Z88.8 Allergy status to other drugs, medicaments and biological substances; Z79.4 Long term (current) use of insulin; Z79.899 Other long term (current) drug therapy; Z87.891 Personal history of nicotine dependence
CPT/HCPCS: 36415; 36600; 71045; 80048; 80076; 81001; 82550; 82553; 82803; 82805; 82948; 84443; 84484; 85025; 85610; 85730; 87086; 94002; 94770; J0360

== ENCOUNTER 2018-12-27 15:57 | Emergency (ER) | payer MEDICARE, MEDICAID ==
[2018-12-27 16:29] VITALS: TEMP 97.4
--- NOTE | 2018-12-27 16:38 | RAD ---
EXAM DESCRIPTION: Chest,1 View CLINICAL HISTORY: 68 years Female sob, edema COMPARISON: 11/29/2018. FINDINGS: Tracheostomy tube in place. Mild cardiomegaly. There is opacity overlying the lower lungs in part related to overlying soft tissues. There may be mild atelectasis or infiltrate at the right lung base. No large pleural effusions are identified. No pneumothorax. IMPRESSION: The lower lungs are suboptimally evaluated secondary to overlying soft tissues. There appears to be mild atelectasis or infiltrate at the right lung base. Electronically signed by: Joey Gonzales MD 12/27/2018 4:36 PM CDT
[2018-12-27] MEDS ORDERED: LEVALBUTEROL NEBS 1.25 MG/3 ML VIAL NEB ONE ×2 (17:10→17:11)
[2018-12-27] MEDS ORDERED: POTASSIUM CHLORIDE 20 MEQ TAB PO ONE (17:15)
[2018-12-27] MEDS ORDERED: LACTULOSE SYRUP 20 GM/30 ML UD PO ONE (17:15)
[2018-12-27] MEDS ORDERED: FUROSEMIDE 40 MG TAB PO ONE (17:15)
[2018-12-27] MEDS ORDERED: busPIRone HCL 5 MG TAB ONE (17:19)
[2018-12-27] MEDS ORDERED: SPIRONOLACTONE 25 MG TAB PO ONE (17:26)
[2018-12-27] MEDS ORDERED: metOLazone 2.5 MG TAB PO ONE (17:26)
[2018-12-27 18:18] VITALS: O2SAT 97
[2018-12-27] MEDS ORDERED: ACETAMINOPHEN-CAFF-BUTALBITAL 1 EA TAB PO ONE (19:34)
--- NOTE | 2018-12-27 19:49 | ED.PDOC ---
History of Present Illness - General Chief Complaint: General Stated Complaint: lower extremity swelling,redness Time Seen by Provider: 12/27/18 16:09 Source: patient Exam Limitations: no limitations - History of Present Illness Initial Comments: the patient is a 68-year-old female presenting to the emergency room secondary to chronic dependent edema worsening over the last month or so according to her daughter. The patient is having no new issues with breathing. She does have 3+ edema in the bilateral lower extremities. Daughter reports that she has been significantly less active over the last month. She has been refusing to have her legs propped up. They have been trying to increase the Lasix to remove the extra fluid. The patient wants a [place] catheter as she does not want to have to get out of bed to use the bathroom. No fever. No new cough. No new symptoms otherwise. the patient is extremely oppositional defiant. He does make her very difficult to work with. She refuses many interventions offered to her. Timing/Duration: other - one month Severity: moderate Improving Factors: nothing Worsening Factors: nothing Associated Symptoms: denies symptoms Allergies/Adverse Reactions: Allergies Cephalexin [From Keflex] Allergy (Verified 11/23/18 15:44) Lidocaine Allergy (Verified 11/23/18 15:44) NSAIDs Allergy (Verified 11/23/18 15:44) Ondansetron [From Zofran] Allergy (Verified 11/23/18 15:44) Home Medications: Ambulatory Orders Albuterol 2 mg/5 ml [Proventil] 2.5 mg INH Q2H PRN 11/25/18 Atorvastatin Calcium 40 mg PO BEDTIME 11/25/18 Carbamide Peroxide Otic [Debrox Otic] 15 ml BOTH_EARS BEDTIME 11/25/18 Cyanocobalamin [B12] 1,000 mcg PO DAILY 11/25/18 Docusate Sodium 100 mg PO BID 11/25/18 Famotidine 20 mg PO BID 11/25/18 Fluticasone Propionate (Nasal) [Fluticasone Propionate] 50 mcg NA DAILY 11/25/18 Furosemide 40 mg PO DAILY 11/25/18 Hydrocodone-Acetaminophen [Hydrocodone Bitartrate/AC 10-325 mg] 1 tab PO BID 11/25/18 Insulin Aspart [Novolog] 0 units SUBCU .SLIDINGSCALE 11/25/18 Ipratropium-Albuterol [Ipratropium [place]/Albut] 3 ml IN Q6H PRN 11/25/18 LORazepam [Ativan] 1 mg PO Q8H PRN 11/25/18 Lamotrigine 100 mg PO BEDTIME 11/25/18 Lisinopril 5 mg PO DAILY 11/25/18 Loratadine [Claritin] 10 mg PO DAILY 11/25/18 Lubiprostone [Amitiza] 24 mcg PO BID 11/25/18 Metformin HCl [Fortamet] 500 mg PO BID 11/25/18 Polyethylene Glycol 3350 [Miralax] 17 gm PO DAILY 11/25/18 Acetazolamide 500 mg PO BID 11/29/18 Cefuroxime Axetil [Ceftin] 500 mg PO Q12H 10 Days #20 tablet 11/29/18 Cholecalciferol [Vitamin D3] 50,000 unit PO TH 11/29/18 Guaifenesin [Guaifenesin ER] 600 mg PO BID 11/29/18 Insulin Lispro (Human) [Humalog] 300 unit SC .SLDINGSCALE 11/29/18 Lactulose (Encephalopathy) [Lactulose] 30 ml PO TID 11/29/18 Lamotrigine 50 mg PO DAILY 11/29/18 Phenazopyridine HCl 100 mg PO DAILY 11/29/18 Potassium Chloride [K-Tab] 20 meq PO DAILY 11/29/18 Sertraline HCl 100 mg PO DAILY 11/29/18 Tamsulosin [Flomax] 0.4 mg PO BEDTIME 11/29/18 Review of Systems - Review of Systems Constitutional: States: no symptoms reported EENTM: States: no symptoms reported Respiratory: States: no symptoms reported Cardiology: States: no symptoms reported Gastrointestinal/Abdominal: States: no symptoms reported Genitourinary: States: no symptoms reported Musculoskeletal: States: see HPI - chronic pain issues Skin: States: see HPI Neurological: States: anxiety, depressed All other Systems: No Change from Baseline Past Medical History (General) - Patient Medical History Hx Asthma: Yes Hx of COPD: Yes Hx Cardiac Disorders: Yes Hx Congestive Heart Failure: No Hx Hypertension: Yes Hx Diabetes: Yes Hx Gastroesophageal Reflux: Yes - Vaccination History Hx Influenza Vaccination: No Hx Pneumococcal Vaccination: Yes - Social History Hx Tobacco Use: Yes - Activities of Daily Living [facility] (if applicable):: [facility] Family Medical History - Family History Mother Family History: Unknown Living Status: Unknown Physical Exam - Physical Exam General Appearance: Alert, No apparent distress Eye Exam: bilateral normal Ears, Nose, Throat: hearing grossly normal, normal ENT inspection Neck: full range of motion, supple, other - trach collar is in place Respiratory: lungs clear, normal breath sounds, no respiratory distress, no accessory muscle use Cardiovascular/Chest: normal peripheral pulses, no edema, other - regular rate Peripheral Pulses: radial,right: 2+, radial,left: 2+ Gastrointestinal/Abdominal: soft - morbidly obese Rectal Exam: deferred Extremity: normal range of motion, pedal edema - 3+ to bilateral lower extremities Neurologic: pump servicer II-XII nml as tested, alert, oriented x 3, other - the patient is obviously anxious, angry and depressed. She ask out frequently and is very obstinate with staff Skin Exam: other - she does have some erythema to bilateral lower extremities but no obvious infection. Progress - Progress Progress: 12/27/18 19:51 the patient's a 68-year-old female presenting secondary to lower extremity edema. Much of this is dependent edema due to needing to sit in a more upright position most of the time. We did place Elvin wraps on her legs. these need to be readjusted at least every 6 hours to prevent constriction bands and ulceration formation. it is possible that the Seroquel may be worsening the edema. This needs to be reevaluated with the facility doctor. Laboratory workup here shows good renal function and no obvious evidence of CHF. We will write the patient for a prescription for compression stockings and she is also going to be written for spironolactone and metolazone to be used for the next 5 days only. we will have her take Lasix 80 mg as well daily for the next 5 days. She does need to maintain an 1.5 L fluid restriction during that time. She does need to increase her activity level. The patient is desirous of a [place] catheter as she frequently urinates on herself. This will be left up to the patient's long-term care facility's doctor. In the short-term I do believe that this is a reasonable request and the patient does understand the risk and benefits of the catheter itself. Family understands as well. ER warnings were given. - Results/Orders Results/Orders: Laboratory Tests 12/27/18 12/27/18 12/27/18 16:36 16:36 18:31 WBC 9.3 RBC 3.29 L Hgb 8.9 L Hct 28.5 L MCV 86.6 MCH 27.1 MCHC 31.3 L RDW 16.9 H Plt Count 342 MPV 6.7 L Absolute Neuts (auto) 7.00 H Absolute Lymphs (auto) 0.90 L Absolute Monos (auto) 0.90 H Absolute Eos (auto) 0.40 Absolute Basos (auto) 0.00 Neutrophils % 75.8 Lymphocytes % 9.7 L Monocytes % 10.1 H Eosinophils % 4.0 Basophils % 0.4 Sodium 138 Potassium 4.6 Chloride 93 L Carbon Dioxide 36 H Anion Gap 13.6 BUN 10 Creatinine 0.58 L BUN/Creatinine Ratio 17.2 Random Glucose 150 H Serum Osmolality 277.6 Calcium 9.0 Magnesium 1.9 Total Bilirubin 0.2 AST 22 ALT 11 Alkaline Phosphatase 92 Creatine Kinase 52 CK-MB (CK-2) 2.3 CK-MB (CK-2) % Not Reportable Troponin I < 0.02 B-Natriuretic Peptide 115.0 H Serum Total Protein 7.4 Albumin 3.0 L Globulin 4.4 H Albumin/Globulin Ratio 0.7 L Urine Color Yellow Urine Appearance Clear Urine pH 6.0 Ur Specific [place] 1.015 Urine Protein Negative Urine Glucose (UA) Negative Urine Ketones Negative Urine Blood Negative Urine Nitrite Negative Urine Bilirubin Negative Urine Urobilinogen 0.2 Ur Leukocyte Esterase Negative Urine RBC 0 Urine WBC 0-1 Ur Epithelial Cells 3-5 Urine Bacteria 3+ H EKG shows normal axis. Normal R-wave progression. No ST segment or T-wave changes definitive for ischemia. Left atrial dilation. Rate is normal sinus rhythm at 86 bpm. Normal QT interval. Chest x-ray shows right lower lobe atelectasis. Departure - Departure Clinical Impression: Dependent edema Disposition: Discharge to SNF Condition: Poor Departure Forms: ED Discharge - Pt. Copy, Patient Portal Self Enrollment Instructions: Dependent Edema (DC) Diet: low salt diet Activity: increase activity as tolerated Referrals: ARNAUD FAN [Primary Care Provider] - 1-2 Weeks Home Medications: Ambulatory Orders Albuterol 2 mg/5 ml [Proventil] 2.5 mg INH Q2H PRN 11/25/18 Atorvastatin Calcium 40 mg PO BEDTIME 11/25/18 Carbamide Peroxide Otic [Debrox Otic] 15 ml BOTH_EARS BEDTIME 11/25/18 Cyanocobalamin [B12] 1,000 mcg PO DAILY 11/25/18 Docusate Sodium 100 mg PO BID 11/25/18 Famotidine 20 mg PO BID 11/25/18 Fluticasone Propionate (Nasal) [Fluticasone Propionate] 50 mcg NA DAILY 11/25/18 Furosemide 40 mg PO DAILY 11/25/18 Hydrocodone-Acetaminophen [Hydrocodone Bitartrate/AC 10-325 mg] 1 tab PO BID 11/25/18 Insulin Aspart [Novolog] 0 units SUBCU .SLIDINGSCALE 11/25/18 Ipratropium-Albuterol [Ipratropium [place]/Albut] 3 ml IN Q6H PRN 11/25/18 LORazepam [Ativan] 1 mg PO Q8H PRN 11/25/18 Lamotrigine 100 mg PO BEDTIME 11/25/18 Lisinopril 5 mg PO DAILY 11/25/18 Loratadine [Claritin] 10 mg PO DAILY 11/25/18 Lubiprostone [Amitiza] 24 mcg PO BID 11/25/18 Metformin HCl [Fortamet] 500 mg PO BID 11/25/18 Polyethylene Glycol 3350 [Miralax] 17 gm PO DAILY 11/25/18 Acetazolamide 500 mg PO BID 11/29/18 Cefuroxime Axetil [Ceftin] 500 mg PO Q12H 10 Days #20 tablet 11/29/18 Cholecalciferol [Vitamin D3] 50,000 unit PO TH 11/29/18 Guaifenesin [Guaifenesin ER] 600 mg PO BID 11/29/18 Insulin Lispro (Human) [Humalog] 300 unit SC .SLDINGSCALE 11/29/18 Lactulose (Encephalopathy) [Lactulose] 30 ml PO TID 11/29/18 Lamotrigine 50 mg PO DAILY 11/29/18 Phenazopyridine HCl 100 mg PO DAILY 11/29/18 Potassium Chloride [K-Tab] 20 meq PO DAILY 11/29/18 Sertraline HCl 100 mg PO DAILY 11/29/18 Tamsulosin [Flomax] 0.4 mg PO BEDTIME 11/29/18 Additional Instructions: the patient's a 68-year-old female presenting secondary to lower extremity edema. Much of this is dependent edema due to needing to sit in a more upright position most of the time. We did place Elvin wraps on her legs. these need to be readjusted at least every 6 hours to prevent constriction bands and ulceration formation. it is possible that the Seroquel may be worsening the edema. This needs to be reevaluated with the facility doctor. Laboratory workup here shows good renal function and no obvious evidence of CHF. We will write the patient for a prescription for compression stockings and she is also going to be written for spironolactone and metolazone to be used for the next 5 days only. we will have her take Lasix 80 mg as well daily for the next 5 days. She does need to maintain an 1.5 L fluid restriction during that time. She does need to increase her activity level. The patient is desirous of a [place] catheter as she frequently urinates on herself. This will be left up to the patient's long-term care facility's doctor. In the short-term I do believe that this is a reasonable request and the patient does understand the risk and benefits of the catheter itself. Family understands as well. ER warnings were given.
[2018-12-27 20:18] VITALS: BP 147/83
[2018-12-27] MEDS ORDERED: busPIRone HCL 5 MG TAB PO SCH (21:00)
== END 2018-12-27 20:20 ==
LOC: ER 15:57
DX: R60.0 Localized edema (principal); F91.3 Oppositional defiant disorder; J44.9 Chronic obstructive pulmonary disease, unspecified; I51.9 Heart disease, unspecified; I10 Essential (primary) hypertension; E11.9 Type 2 diabetes mellitus without complications; K21.9 Gastro-esophageal reflux disease without esophagitis; Z87.891 Personal history of nicotine dependence; Z79.899 Other long term (current) drug therapy; Z79.4 Long term (current) use of insulin; Z88.1 Allergy status to other antibiotic agents; Z88.8 Allergy status to other drugs, medicaments and biological substances; Z88.6 Allergy status to analgesic agent
CPT/HCPCS: 36415; 71045; 80053; 81001; 82550; 82553; 83735; 83880; 84484; 85025; 93005; 94640; 94760; J7614

== ENCOUNTER 2019-01-10 16:03 | Emergency (ER) | payer MEDICARE, MEDICAID ==
--- NOTE | 2019-01-10 16:48 | ED.PDOC ---
History of Present Illness - General Chief Complaint: General Stated Complaint: Lethargic, not eating, not taking meds Time Seen by Provider: 01/10/19 16:45 Source: patient Exam Limitations: clinical condition - tracheostomy - History of Present Illness Initial Comments: Keyla Anglin 68 y/o female resident at [facility] brought by EMS after she was found to be lethargic this afternoon by her daughter while she was visiting her.Patient does not like to eat,and take her medications.She has tracheostomy and had been O2 dependent .Daughter stated that she had history of acute respiratory failure in the past and was placed on ventilator after she coded 2 x on the facility where she used to stay in [place]. Timing/Duration: unsure Severity: moderate Improving Factors: nothing Worsening Factors: nothing Associated Symptoms: other - see hpi Allergies/Adverse Reactions: Allergies Cephalexin [From Keflex] Allergy (Verified 01/10/19 16:52) Lidocaine Allergy (Verified 01/10/19 16:52) NSAIDs Allergy (Verified 01/10/19 16:52) Ondansetron [From Zofran] Allergy (Verified 01/10/19 16:52) Home Medications: Ambulatory Orders Albuterol 2 mg/5 ml [Proventil] 2.5 mg INH Q2H PRN 11/25/18 Atorvastatin Calcium 40 mg PO BEDTIME 11/25/18 Carbamide Peroxide Otic [Debrox Otic] 15 ml BOTH_EARS BEDTIME 11/25/18 Cyanocobalamin [B12] 1,000 mcg PO DAILY 11/25/18 Docusate Sodium 100 mg PO BID 11/25/18 Famotidine 20 mg PO BID 11/25/18 Fluticasone Propionate (Nasal) [Fluticasone Propionate] 50 mcg NA DAILY 11/25/18 Furosemide 40 mg PO DAILY 11/25/18 Hydrocodone-Acetaminophen [Hydrocodone Bitartrate/AC 10-325 mg] 1 tab PO BID 11/25/18 Insulin Aspart [Novolog] 0 units SUBCU .SLIDINGSCALE 11/25/18 Ipratropium-Albuterol [Ipratropium Adamant/Albut] 3 ml IN Q6H PRN 11/25/18 LORazepam [Ativan] 1 mg PO Q8H PRN 11/25/18 Lamotrigine 100 mg PO BEDTIME 11/25/18 Lisinopril 5 mg PO DAILY 11/25/18 Loratadine [Claritin] 10 mg PO DAILY 11/25/18 Lubiprostone [Amitiza] 24 mcg PO BID 11/25/18 Metformin HCl [Fortamet] 500 mg PO BID 11/25/18 Polyethylene Glycol 3350 [Miralax] 17 gm PO DAILY 11/25/18 Acetazolamide 500 mg PO BID 11/29/18 Cefuroxime Axetil [Ceftin] 500 mg PO Q12H 10 Days #20 tablet 11/29/18 Cholecalciferol [Vitamin D3] 50,000 unit PO TH 11/29/18 Guaifenesin [Guaifenesin ER] 600 mg PO BID 11/29/18 Insulin Lispro (Human) [Humalog] 300 unit SC .SLDINGSCALE 11/29/18 Lactulose (Encephalopathy) [Lactulose] 30 ml PO TID 11/29/18 Lamotrigine 50 mg PO DAILY 11/29/18 Phenazopyridine HCl 100 mg PO DAILY 11/29/18 Potassium Chloride [K-Tab] 20 meq PO DAILY 11/29/18 Sertraline HCl 100 mg PO DAILY 11/29/18 Tamsulosin [Flomax] 0.4 mg PO BEDTIME 11/29/18 Review of Systems - Review of Systems Neurological: States: see HPI Unable to Obtain Due To: condition - tracheostomy Past Medical History (General) - Patient Medical History Hx Asthma: Yes Hx of COPD: Yes Hx Cardiac Disorders: Yes Hx Congestive Heart Failure: No Hx Hypertension: Yes Hx Diabetes: Yes Hx Gastroesophageal Reflux: Yes - Vaccination History Hx Influenza Vaccination: No Hx Pneumococcal Vaccination: Yes - Social History Hx Tobacco Use: Yes Family Medical History - Family History Mother Family History: Unknown Living Status: Unknown Physical Exam - Physical Exam General Appearance: Other - lethargic-but opens eyes with voice Eye Exam: bilateral normal Ears, Nose, Throat: hearing grossly normal, other - dry oral mucosa Neck: other - tracheostomy intact Respiratory: no accessory muscle use, rales Cardiovascular/Chest: regular rate, rhythm Peripheral Pulses: radial,right: 1+, radial,left: 1+ Gastrointestinal/Abdominal: non tender, soft Extremity: pedal edema, other - anasarca Neurologic: other - lethergic Progress - Progress Progress: 01/10/19 19:29 Vital Signs - 8 hr 01/10/19 01/10/19 01/10/19 16:15 16:26 17:00 Temperature 96.1 F L Pulse Rate Pulse Rate [R 80 80 74 great toe] Respiratory 18 18 18 Rate Respiratory Rate [Volume Control Data] Blood Pressure 113/46 89/54 [R arm] O2 Sat by Pulse 98 99 Oximetry 01/10/19 01/10/19 01/10/19 17:05 17:45 18:00 Temperature Pulse Rate 80 Pulse Rate [R 71 great toe] Respiratory 18 16 Rate Respiratory 18 Rate [Volume Control Data] Blood Pressure 116/68 [R arm] O2 Sat by Pulse 99 100 Oximetry 01/10/19 18:10 Temperature Pulse Rate Pulse Rate [R great toe] Respiratory 18 Rate Respiratory Rate [Volume Control Data] Blood Pressure [R arm] O2 Sat by Pulse Oximetry 01/10/19 19:29 Mechanical Ventilation was restarted after ABG was noted to be acidotic respiratory pH-7.07;pCO2-126;pO2-137 - Results/Orders Results/Orders: 01/10/19 16:48 URINALYSIS Stat 01/10/19 18:28 Capnography .ONCE Mechanical Ventilation DAILY 01/10/19 18:29 SVN [SVN/Updraft Therapy] .PRN 01/10/19 19:15 ABG [Arterial Blood Gas] Stat Laboratory Results - last 24 hr 01/10/19 01/10/19 01/10/19 16:48 17:12 17:12 WBC 9.6 RBC 3.34 L Hgb 8.9 L Hct 29.5 L MCV 88.2 MCH 26.6 L MCHC 30.1 L RDW 17.4 H Plt Count 384 MPV 7.2 L Absolute Neuts (auto) 7.40 H Absolute Lymphs (auto) 0.80 L Absolute Monos (auto) 1.10 H Absolute Eos (auto) 0.20 Absolute Basos (auto) 0.10 Neutrophils % 77.6 Lymphocytes % 8.2 L Monocytes % 11.7 H Eosinophils % 1.9 Basophils % 0.6 PT 9.3 INR 0.93 PTT (SP) 27.9 pCO2 127 H* pO2 137 H* HCO3 34.8 ABG pH 7.070 L* ABG O2 Saturation 99.3 H ABG Base Excess 2.8 ABG Deoxyhemoglobin 0.7 Oxyhemoglobin % 97.2 Carboxyhemoglobin % -0.4 L Methemoglobin % Sat 2.4 H Calc Total Hemoglobin 8.3 L Sodium 138 Potassium 4.5 Chloride 99 L Carbon Dioxide 32 H Anion Gap 11.5 L BUN 28 H Creatinine 0.79 BUN/Creatinine Ratio 35.4 H POC Glucose Random Glucose 155 H Serum Osmolality 284.3 Lactic Acid Calcium 9.2 Magnesium 2.3 Total Bilirubin 0.2 Direct Bilirubin < 0.1 Indirect Bilirubin 0.1 L AST 16 ALT 11 Alkaline Phosphatase 86 Ammonia Creatine Kinase 28 CK-MB (CK-2) 4.0 CK-MB (CK-2) % Not Reportable Troponin I < 0.02 B-Natriuretic Peptide 110.0 H Serum Total Protein 7.7 Albumin 2.9 L TSH 3.15 01/10/19 01/10/19 01/10/19 17:14 17:15 19:34 WBC RBC Hgb Hct MCV MCH MCHC RDW Plt Count MPV Absolute Neuts (auto) Absolute Lymphs (auto) Absolute Monos (auto) Absolute Eos (auto) Absolute Basos (auto) Neutrophils % Lymphocytes % Monocytes % Eosinophils % Basophils % PT INR PTT (SP) pCO2 pO2 HCO3 ABG pH ABG O2 Saturation ABG Base Excess ABG Deoxyhemoglobin Oxyhemoglobin % Carboxyhemoglobin % Methemoglobin % Sat Calc Total Hemoglobin Sodium Potassium Chloride Carbon Dioxide Anion Gap BUN Creatinine BUN/Creatinine Ratio POC Glucose 156 H Random Glucose Serum Osmolality Lactic Acid 1.1 Calcium Magnesium Total Bilirubin Direct Bilirubin Indirect Bilirubin AST ALT Alkaline Phosphatase Ammonia 54 H* Creatine Kinase CK-MB (CK-2) CK-MB (CK-2) % Troponin I B-Natriuretic Peptide Serum Total Protein Albumin TSH Departure - Departure Clinical Impression: Ventilator dependence, Anemia, chronic disease, Hyperammonemia, Anasarca Acute and chronic respiratory failure ([id number]) Qualifiers: Respiratory failure complication: hypercapnia Qualified Code(s): J96.22 - Acute and chronic respiratory failure with hypercapnia CHF, acute on chronic Qualifiers: Heart failure type: unspecified Qualified Code(s): I50.9 - Heart failure, unspecified Time of Disposition: 20:58 Disposition: Transfer to Hospital Condition: Fair Departure Forms: ED Discharge - Pt. Copy, Patient Portal Self Enrollment Referrals: ARNAUD FAN [Primary Care Provider] - 1-2 Weeks Home Medications: Ambulatory Orders Albuterol 2 mg/5 ml [Proventil] 2.5 mg INH Q2H PRN 11/25/18 Atorvastatin Calcium 40 mg PO BEDTIME 11/25/18 Carbamide Peroxide Otic [Debrox Otic] 15 ml BOTH_EARS BEDTIME 11/25/18 Cyanocobalamin [B12] 1,000 mcg PO DAILY 11/25/18 Docusate Sodium 100 mg PO BID 11/25/18 Famotidine 20 mg PO BID 11/25/18 Fluticasone Propionate (Nasal) [Fluticasone Propionate] 50 mcg NA DAILY 11/25/18 Furosemide 40 mg PO DAILY 11/25/18 Hydrocodone-Acetaminophen [Hydrocodone Bitartrate/AC 10-325 mg] 1 tab PO BID 11/25/18 Insulin Aspart [Novolog] 0 units SUBCU .SLIDINGSCALE 11/25/18 Ipratropium-Albuterol [Ipratropium Adamant/Albut] 3 ml IN Q6H PRN 11/25/18 LORazepam [Ativan] 1 mg PO Q8H PRN 11/25/18 Lamotrigine 100 mg PO BEDTIME 11/25/18 Lisinopril 5 mg PO DAILY 11/25/18 Loratadine [Claritin] 10 mg PO DAILY 11/25/18 Lubiprostone [Amitiza] 24 mcg PO BID 11/25/18 Metformin HCl [Fortamet] 500 mg PO BID 11/25/18 Polyethylene Glycol 3350 [Miralax] 17 gm PO DAILY 11/25/18 Acetazolamide 500 mg PO BID 11/29/18 Cefuroxime Axetil [Ceftin] 500 mg PO Q12H 10 Days #20 tablet 11/29/18 Cholecalciferol [Vitamin D3] 50,000 unit PO TH 11/29/18 Guaifenesin [Guaifenesin ER] 600 mg PO BID 11/29/18 Insulin Lispro (Human) [Humalog] 300 unit SC .SLDINGSCALE 11/29/18 Lactulose (Encephalopathy) [Lactulose] 30 ml PO TID 11/29/18 Lamotrigine 50 mg PO DAILY 11/29/18 Phenazopyridine HCl 100 mg PO DAILY 11/29/18 Potassium Chloride [K-Tab] 20 meq PO DAILY 11/29/18 Sertraline HCl 100 mg PO DAILY 11/29/18 Tamsulosin [Flomax] 0.4 mg PO BEDTIME 11/29/18 Transfer to Outside Facility - Transfer Information Accepting Provider:: Dr.John Trujillo-NATALI/ Accepting Facility: [facility] Reason for Transfer: required specialist not available - Registered Nurse Maternal Child
--- NOTE | 2019-01-10 17:28 | RAD ---
EXAM DESCRIPTION: XR Chest, 1 View CLINICAL HISTORY: 68 years Female lethargic TECHNIQUE: One view of the chest. COMPARISON: Comparison is made to the prior examination dated 12/27/2018. FINDINGS: Stable tracheostomy tube and moderate cardiomegaly. Again seen is diffuse pulmonary vascular prominence with suspected mild to moderate pulmonary edema. No large pleural effusion or visualized pneumothorax. IMPRESSION: Cardiomegaly with at least mild congestive heart failure suspected. Electronically signed by: Heathre Alvarado MD 01/10/2019 5:26 PM CDT
[2019-01-10] MEDS: IPRATROPIUM/ALBUTEROL 3 ML VIAL NEB ONE (17:50)
[2019-01-10 21:31] VITALS: BP 128/67; TEMP 97.5; O2SAT 93
[2019-01-10] MEDS: BUMETANIDE 0.25 MG/ML VIAL IV ONE (21:48)
== END 2019-01-10 22:25 | disposition short-term general hospital (02) ==
LOC: ER 16:03
DX: J96.22 Acute and chronic respiratory failure with hypercapnia (principal); I50.9 Heart failure, unspecified; D63.8 Anemia in other chronic diseases classified elsewhere; E72.20 Disorder of urea cycle metabolism, unspecified; R60.1 Generalized edema; J44.9 Chronic obstructive pulmonary disease, unspecified; I51.9 Heart disease, unspecified; I11.0 Hypertensive heart disease with heart failure; E11.9 Type 2 diabetes mellitus without complications; K21.9 Gastro-esophageal reflux disease without esophagitis; Z99.11 Dependence on respirator [ventilator] status; Z87.891 Personal history of nicotine dependence; Z79.899 Other long term (current) drug therapy; Z79.4 Long term (current) use of insulin; Z88.1 Allergy status to other antibiotic agents; Z88.8 Allergy status to other drugs, medicaments and biological substances; Z88.6 Allergy status to analgesic agent
CPT/HCPCS: 36415; 36600; 71045; 80048; 80076; 81001; 82140; 82550; 82553; 82803; 82805; 82948; 83605; 83880; 84443; 84484; 85025; 85610; 85730; 94002; 94640; 94770; J3490; J7620